=== PATIENT | female | born 1955 | race Caucasian/White ===

== ENCOUNTER 2022-10-17 21:11 | Emergency (ER) | payer MEDICARE ==
[~2022-10-17] VITALS: Ht 162.6 cm; Wt 67.7 kg
[2022-10-17 21:32] VITALS: BP 115/65
[2022-10-17] MEDS ORDERED: ibuprofen tablet 400 MG TABLET PO ONE (23:45)
[2022-10-17] MEDS ORDERED: HYDROcodone/acetaminophen 5mg/325mg tablet PO ONE (23:45)
[2022-10-17] MEDS ORDERED: acetaminophen 325mg tablet PO ONE (23:45)
--- NOTE | 2022-10-17 23:46 | NUR ---
PO MEDS X2 GIVEN
[2022-10-18] MEDS ORDERED: HYDR-3965 PO
== END 2022-10-18 00:34 | disposition home or self-care (01) ==
LOC: ER 21:13
DX: M25.552 Pain in left hip (principal); I10 Essential (primary) hypertension; Z88.0 Allergy status to penicillin; Z79.899 Other long term (current) drug therapy
CPT/HCPCS: 72170; 99283

== ENCOUNTER 2022-10-18 16:00 | Emergency (ER) | payer MEDICARE ==
[~2022-10-18] VITALS: Ht 160 cm; Wt 67.7 kg
[~2022-10-18 16:00] MED LIST: HYDR-3965 PO
[2022-10-18] MEDS ORDERED: morphine 4 MG/ML inj SYRINge IM ONE (17:45)
[2022-10-18] MEDS ORDERED: HYDROcodone/acetaminophen 10/325mg tab PO ONE (17:50)
[2022-10-18 18:46] VITALS: BP 138/76
== END 2022-10-18 18:49 | disposition home or self-care (01) ==
LOC: ER 16:01
DX: M25.552 Pain in left hip (principal); I10 Essential (primary) hypertension; Z88.0 Allergy status to penicillin; Z79.899 Other long term (current) drug therapy
CPT/HCPCS: 73502; 96372; 99284; J2270

== ENCOUNTER 2022-12-05 15:41 | Inpatient (IN) | payer MEDICARE, MEDICAID ==
[~2022-12-05] VITALS: Ht 162.6 cm; Wt 63.6 kg
[~2022-12-05 15:41] MED LIST changes: +AMLO5TAB16 PO; +BISA10SU64 RC; +CELE-85 PO; +DEC4T PO; +DOCU-149 PO; -HYDR-3965 PO; +HYDR25TA4 PO; +LISI20TA28 PO; +MSC30T PO; +ONDA8TAB13 PO; +PANT40TA54 PO; +POLY17PO10 PO; +SENN1TAB82 PO; +TRAM50TA2 PO
[2022-12-05 17:07] LABS: ALANINE AMINOTRANSFERASE 27 U/L (12-78); ALBUMIN 2.2 G/DL (3.4-5.0); ALBUMIN/GLOBULIN RATIO 0.6 (1.1-1.5); ALKALINE PHOSPHATASE 390 IU/L (46-116); ANION GAP 12 (8-16); ASPARTATE AMINO TRANSFERASE 37 U/L (10-37); BILIRUBIN,TOTAL 1.4 MG/DL (0.1-1.0); BLOOD UREA NITROGEN 58 MG/DL (7-18); BUN/CREATININE RATIO 45.7 (6.6-38.0); CALCIUM 8.7 MG/DL (8.5-10.1); CHLORIDE 101 MMOL/L (99-107); CREATININE 1.27 MG/DL (0.40-0.90); GLUCOSE 155 MG/DL (70-104); POTASSIUM 5.8 MMOL/L (3.5-5.1); SODIUM 139 MMOL/L (135-145); TOTAL CARBON DIOXIDE 26.2 MMOL/L (24-32); TOTAL PROTEIN 5.9 G/DL (6.4-8.2); eGFR 42 ML/MIN
[2022-12-05 17:16] LABS: BASOPHILS % (AUTO) 0.2 % (0-1); EOSINOPHILS % (AUTO) 0.1 % (0-6); HEMATOCRIT 24.2 % (35.0-45.0); HEMOGLOBIN 8.1 g/dl (12.0-16.0); LYMPHOCYTES # (AUTO) 0.1 X10'3 (1.1-4.8); LYMPHOCYTES % (AUTO) 1.6 % (21-51); MEAN CORPUSCULAR HEMOGLOBIN 29.9 PG (27.0-31.0); MEAN CORPUSCULAR HGB CONC 33.3 g/dL (33.0-36.5); MEAN CORPUSCULAR VOLUME 89.8 FL (78-98); MEAN PLATELET VOLUME 8.5 FL (7.4-10.4); MONOCYTES # (AUTO) 0.1 X10'3 (0-0.9); MONOCYTES % (AUTO) 1.4 % (2-12); NEUTROPHILS # (AUTO) 7.3 X10'3 (1.8-7.7); NEUTROPHILS % (AUTO) 96.7 % (42-75); PLATELET COUNT 76 X10'3 (140-440); RED BLOOD COUNT 2.69 X10'6 (4.20-5.60); RED CELL DISTRIBUTION WIDTH 20.8 % (11.5-14.5); WHITE BLOOD COUNT 7.5 X10'3 (4.5-11.0)
[2022-12-05 17:41] LABS: ANISOCYTOSIS 3+; PLATELET ESTIMATE DECREASED; POLYCHROMASIA FEW; STOMATOCYTES FEW; TEAR DROP CELLS FEW
[2022-12-05] MEDS ORDERED: ringers solution, lactated 500ml IV solution IV ONE (18:30)
[2022-12-05] MEDS ORDERED: furosemide 10 MG/1 ML 10ml inj IV ONE (18:30)
[2022-12-05 19:29] LABS: CLARITY,URINE CLOUDY (Clear); GLUCOSE, URINE NEGATIVE (Neg); KETONES,URINE TRACE mg/dl (Neg); LEUKOCYTE ESTERASE ,URINE LARGE (Neg); NITRITES, URINE POSITIVE (Neg); OCCULT BLOOD,URINE MODERATE (Neg); PROTEIN,URINE 30 mg/dl (Neg); UROBILINOGEN,URINE 0.2 E.U/dL (0.2-1.0)
[2022-12-05 19:32] LABS: COLOR,URINE DARK YELLOW (Yellow); UA COLLECTION TYPE FOLEY CATH
[2022-12-05 19:40] LABS: BACTERIA,URINE 3+ /HPF (Neg)
[2022-12-05] MEDS ORDERED: morphine 10 MG/5 ML UD oral solution PO ONE (19:40)
[2022-12-05 19:41] LABS: YEAST MANY /HPF (NEGATIVE)
[2022-12-05 19:42] LABS: SQUAMOUS EPITHELIAL CELL,UR FEW /LPF (FEW)
[2022-12-05 19:43] LABS: MUCUS STRANDS MODERATE /LPF (Neg); TRANSITIONAL EPI CELLS,URINE MODERATE /HPF
[2022-12-05 19:45] LABS: RENAL CELLS, URINE FEW /HPF; WBC,URINE 50-100 /HPF (0-4)
[2022-12-05] MEDS ORDERED: dextrose 50%-water 50ml dispensing syringe IV ONE (20:00)
[2022-12-05] MEDS: morphine 2 MG/ML inj. syringe IV PRN ×2 (20:03→20:54)
[2022-12-05] MEDS ORDERED: insulin regular, human U-100 3ml vial - multi-dose IV ONE (20:18)
[2022-12-05] MEDS ORDERED: CefTRIAXone 2gm/D5W 50ml BAG 50 ML IV ONE (22:10)
[2022-12-05] MEDS ORDERED: normal saline 1000ml 1,000 ML IV ONE (22:10)
[2022-12-05] MEDS ORDERED: dexamethasone sod phosphate 10mg/ml inj IV STA (22:26)
[2022-12-05] MEDS ORDERED: ondansetron/PF 4mg/2ml inj IV PRN (22:35)
[2022-12-05] MEDS ORDERED: morphine 2 MG/ML inj. syringe IV PRN (22:35)
[2022-12-06] MEDS ORDERED: HYDR12.55 PO (01:34)
[2022-12-06] MEDS ORDERED: CYCL-394 PO (01:37)
[2022-12-06] MEDS ORDERED: SIMV40TA PO (01:45)
[2022-12-06] MEDS ORDERED: DOCU-342 PO (01:46)
[2022-12-06] MEDS: normal saline 1000ml 1,000 ML IV SCH ×2 (02:57→08:35)
[2022-12-06 03:23] VITALS: BP 103/57
[2022-12-06] MEDS ORDERED: ondansetron 4mg rapidly disintigrating tab PO PRN ×2 (04:20→17:45)
--- NOTE | 2022-12-06 06:23 | NUR ---
Problems reprioritized. Patient report given, questions answered & plan of care reviewed with JOSE ACOSTA.
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
--- NOTE | 2022-12-06 06:42 | NUR ---
Patient in room [facility]. I have received report from Nadia GARCIA and had the opportunity to ask questions and assume patient care.
--- NOTE | 2022-12-06 07:12 | NUR ---
Patient refused 0600 vital signs.
[2022-12-06] MEDS ORDERED: dexamethasone 4mg/ml inj IV SCH (08:00)
[2022-12-06] MEDS ORDERED: pantoprazole 40MG/NS 100ML BAG 100 ML IV SCH ×2 (08:00)
[2022-12-06] MEDS: pantoprazole 40mg Tablet.DR PO SCH ×2 (08:00→08:04)
[2022-12-06] MEDS: cyclobenzaprine 10mg tablet PO SCH ×2 (08:00→08:04)
[2022-12-06] MEDS ORDERED: heparin, porcine 5000 units/ml vial SQ SCH (08:00)
[2022-12-06] MEDS: docusate sod 100mg capsule PO SCH ×2 (08:00→08:04)
[2022-12-06] MEDS: morphine ER 30mg tablet PO SCH ×3 (08:00→20:00)
[2022-12-06] MEDS ORDERED: morphine 2 MG/ML inj. syringe IV PRN ×2 (11:25→17:45)
[2022-12-06] MEDS ORDERED: cyclobenzaprine 10mg tablet PO PRN (11:25)
[2022-12-06 11:30] VITALS: BP 149/66
[2022-12-06] MEDS ORDERED: bisacodyl 10mg suppository rectal RC SCH (11:35)
[2022-12-06] MEDS ORDERED: methylnaltrexone br 12mg/0.6ml inj***SubQ only SQ PRN (11:35)
--- NOTE | 2022-12-06 12:12 | NUR ---
Notified by lab this AM that all 4 [employer] laborer have attempted to Draw labs and have been unsuccessful. Hospitalist requests labs drawn. this Nurse attempted to draw labs, unable to draw du to family refusal.
[2022-12-06] MEDS ORDERED: morphine ORAL 5MG/0.25 ML (Conc. morphine) oral syringe PO PRN (17:45)
[2022-12-06 18:00] VITALS: BP 132/71
--- NOTE | 2022-12-06 18:12 | NUR ---
Problems reprioritized. Patient report given, questions answered & plan of care reviewed with Nadia GARCIA.
[2022-12-06] MEDS: morphine 2 MG/ML inj. syringe IV PRN (19:45)
[2022-12-06] MEDS ORDERED: CefTRIAXone/D5W-Rocephin 1gm 50 ML IV SCH (22:00)
[2022-12-06] MEDS: morphine 10mg/0.5ml (conc. morphine) oral syringe PO PRN (23:21)
[2022-12-07] MEDS: morphine 10mg/0.5ml (conc. morphine) oral syringe PO PRN (05:45)
[2022-12-07] MEDS ORDERED: LORazepam 2 mg/ml vial IM ONE (05:55)
--- NOTE | 2022-12-07 05:57 | NUR ---
PT IS MOANING AND AGITATED CALLED DR. KESSLER AND HE ORDERED JUST A ONE TIME DOSE OF A .5 MG ATIVAN IV. DAUGHTERS ARRIVED FROM [employer] AND ARE OK WITH A REQUEST TO HAVE ATIVAN AVAILABLE IF NEEDED FOR AGITATION. DAUGHTERS ARE FIRST TRYING TO LIMIT OVERSTIMULATION WHEN AT BEDSIDE BEFORE USE OF ATIVAN. THAT ALONG WITH THE USE OF THE ROXANOL FOR PAIN.
--- NOTE | 2022-12-07 06:35 | NUR ---
Problems reprioritized. Patient report given, questions answered & plan of care reviewed with JOSE HERNANDEZ.
--- NOTE | 2022-12-07 06:54 | NUR ---
Patient in room [facility]. I have received report from Nadia and had the opportunity to ask questions and assume patient care.
[2022-12-07] MEDS: morphine ER 30mg tablet PO SCH (08:00)
[2022-12-07] MEDS: morphine 2 MG/ML inj. syringe IV PRN ×2 (10:13→13:58)
--- NOTE | 2022-12-07 12:18 | NUR ---
Calorie Count Consult: Supposed to be Malnutrition Consult. Pt obtunded pending scaled wt this admit though hx metastatic CA w/ recent admit 11/12/22-11/25/22 poor oral intake majority of admit. Pt w/ decreased swallow ability and intake prior to this admit as well following recent radiation. Pt likely continues to be severely malnourished given increased nutrient needs and predicted suboptimal intake w/ prior poor intake trends; MD notified. Pt remains NPO and is now comfort care per EMR. Will continue to follow per comfort measures. Rec: 1. bowel regimen per comfort measures Addendum: 12/07/22 at [address] Amended: Links added.
== END 2022-12-07 14:47 | disposition hospice, home (50) | DRG 947 ==
LOC: ER 15:42 → ED HOLD 22:38 → SUR 3N 12-06 02:32
PROVIDERS: ADMIT Internal Medicine; ATTEND Internal Medicine
PROC: 5A0945A Assistance with Respiratory Ventilation, 24-96 Consecutive Hours, High Flow/Velocity Cannula (ICD-10-PCS; principal; 2022-12-06)
DX: G89.3 Neoplasm related pain (acute) (chronic) (principal); E43 Unspecified severe protein-calorie malnutrition; N17.9 Acute kidney failure, unspecified; N39.0 Urinary tract infection, site not specified; E87.5 Hyperkalemia; E86.0 Dehydration; E83.52 Hypercalcemia; D63.8 Anemia in other chronic diseases classified elsewhere; I12.9 Hypertensive chronic kidney disease with stage 1 through stage 4 chronic kidney disease, or unspecified chronic kidney disease; K59.00 Constipation, unspecified; D69.6 Thrombocytopenia, unspecified; E78.5 Hyperlipidemia, unspecified; Z85.118 Personal history of other malignant neoplasm of bronchus and lung; Z51.5 Encounter for palliative care; Z87.891 Personal history of nicotine dependence; Z88.0 Allergy status to penicillin; Z85.830 Personal history of malignant neoplasm of bone; Z68.24 Body mass index [BMI] 24.0-24.9, adult
CPT/HCPCS: 36415; 70450; 71045; 74018; 80053; 81001; 82948; 84484; 85008; 85025; 87077; 87081; 87088; 87186; 93005; 94760; 96361; 96365; 96375; 99285; A4615; A6212; A6213; C9113; G0378; J0696; J1100; J1815; J2270; J3490; J7030; J7120